=== PATIENT | female | born 2000 | race Two or more races ===

== ENCOUNTER 2022-12-20 14:05 | Emergency (ER) | payer OTHER ==
[~2022-12-20] VITALS: Ht 160 cm; Wt 101.4 kg
[2022-12-20] MEDS ORDERED: IBUPROFEN 800 MG TAB PO ONE (15:45)
[2022-12-20] MEDS ORDERED: IBUP800T26 PO (16:43)
[2022-12-20 16:55] VITALS: BP 106/46
== END 2022-12-20 17:00 | disposition home or self-care (01) ==
LOC: ER 14:05
DX: S20.212A Contusion of left front wall of thorax, initial encounter (principal); V43.62XA Car passenger injured in collision with other type car in traffic accident, initial encounter; Y93.89 Activity, other specified; Y92.89 Other specified places as the place of occurrence of the external cause; Y99.8 Other external cause status
CPT/HCPCS: 71046; 93005